=== PATIENT | female | born 1965 | race Caucasian/White ===

== ENCOUNTER → 2017-04-02 | Outpatient (CLI) | payer BC ==
--- NOTE | 2017-04-05 07:36 | MM ---
Reason for exam: screening (asymptomatic). Last mammogram was performed 3 years and 5 months ago. History: Benign excisional biopsy of the right breast, 2001. Took hormonal contraceptives for 9 years. Physical Findings: A clinical breast exam by your physician is recommended on an annual basis and results should be correlated with mammographic findings. MG Screening Mammo w CAD Bilateral CC and MLO view(s) were taken. Prior study comparison: November 14, 2013, bilateral digital screening mammo w/CAD. July 17, 2008, bilateral digital screening mammogram. There are scattered fibroglandular densities. No significant changes when compared with prior studies. ASSESSMENT: Benign, BI-RAD 2 RECOMMENDATION: Routine screening mammogram of both breasts in 1 year.
== END | disposition home or self-care (01) ==
LOC: RADMAMWWP 14:37
PROVIDERS: ATTEND Family Medicine
DX: Z12.31 Encounter for screening mammogram for malignant neoplasm of breast (principal)

== ENCOUNTER → 2019-12-27 | Outpatient (CLI) | payer OTHER ==
[2019-12-27 12:54] LABS: Basophils % (A) 0 %; Eosinophils # (A) 0.2 k/uL (0-0.7); Eosinophils % (A) 2 %; HCT 43.3 % (34.0-46.0); HGB 14.4 gm/dL (11.4-16.0); Lymphocytes # (A) 3.3 k/uL (1.0-4.8); Lymphocytes % (A) 38 %; MCH 30.5 pg (25.0-35.0); MCHC 33.2 g/dL (31.0-37.0); MCV 91.9 fL (80.0-100.0); Mean Platelet Volume 7.3; Monocytes # (A) 0.4 k/uL (0-1.0); Monocytes % (A) 4 %; Neutrophils # (A) 4.6 k/uL (1.3-7.7); Neutrophils % (A) 53 %; Platelet Count 302 k/uL (150-450); RBC 4.71 m/uL (3.80-5.40); RDW 13.3 % (11.5-15.5); WBC 8.7 k/uL (3.8-10.6)
[2019-12-27 12:56] LABS: Potassium 5.4 mmol/L (3.5-5.1)
== END | disposition home or self-care (01) ==
LOC: LABPAT 11:19
PROVIDERS: ATTEND Orthopaedic Surgery
DX: Z01.818 Encounter for other preprocedural examination (principal); M23.92 Unspecified internal derangement of left knee; S83.512D Sprain of anterior cruciate ligament of left knee, subsequent encounter
CPT/HCPCS: 36415; 80051; 85025; 93005

== ENCOUNTER → 2020-01-09 | Outpatient (CLI) | payer OTHER ==
--- NOTE | 2020-01-11 09:23 | MM ---
Reason for exam: screening (asymptomatic). Last mammogram was performed 2 years and 9 months ago. History: Benign excisional biopsy of the right breast, 2001. Took hormonal contraceptives for 9 years. Physical Findings: A clinical breast exam by your physician is recommended on an annual basis and results should be correlated with mammographic findings. MG 3D Screening Mammo W/Cad Bilateral CC and MLO view(s) were taken. Prior study comparison: April 02, 2017, bilateral MG screening mammo w CAD. November 14, 2013, bilateral digital screening mammo w/CAD. The breast tissue is heterogeneously dense. This may lower the sensitivity of mammography. There is chronic nodularity in the left breast anterior upper outer quadrant. No significant changes when compared with prior studies. ASSESSMENT: Benign, BI-RAD 2 RECOMMENDATION: Routine screening mammogram of both breasts in 1 year.
== END ==
LOC: RADMAMWWP 15:47
PROVIDERS: ATTEND Family Medicine
DX: Z12.31 Encounter for screening mammogram for malignant neoplasm of breast (principal)
CPT/HCPCS: 77063; 77067

== ENCOUNTER 2020-01-11 07:29 | Day surgery (SDC) | payer OTHER ==
[2020-01-09 12:46] VITALS: BMI 38.2
--- NOTE | 2020-01-10 13:53 | HP ---
HISTORY AND PHYSICAL Surgery 01/11/2020. Anai Ovalle 54-year-old patient seen with progressive left knee pain, instability consistent with meniscal tear and anterior cruciate ligament tear. We discussed options. She elected to proceed with arthroscopy to include allograft ACL reconstruction. Consent regarding the procedure was obtained. PAST MEDICAL HISTORY: Hypertension. PAST SURGICAL HISTORY: Carpal tunnel release. Colonoscopy. MEDICATIONS: Atenolol. ALLERGIES: None. SOCIAL HISTORY: She denies tobacco use. PHYSICAL EXAMINATION: Evaluation of the left knee range of motion 0-130. Mild effusion. Tenderness along the medial and lateral joint lines. Positive medial Liliya's. Plus one/two Marjan. Pivot shift equivocal. Collateral ligaments are stable. Distal neurovascular exam intact. Left knee radiographs revealed moderate medial compartment osteoarthritis. An MRI of the left knee revealed medial meniscal tear, anterior cruciate ligament tear and large joint effusion. IMPRESSION: 1. Internal derangement, left knee with medial meniscal tear and anterior cruciate ligament tear. 2. Left knee osteoarthritis. 3. Hypertension. PLAN: Left knee arthroscopy with partial meniscectomy, allograft ACL reconstruction and debridement. MMODL / IJN: [id number] /
[~2020-01-11 07:29] MED LIST: LACTATED RINGERS 1,000 ML IV SCH
[2020-01-11] MEDS ORDERED: ONDANSETRON 4 MG/2 ML VIAL ONE (08:08)
[2020-01-11] MEDS ORDERED: ONDANSETRON 4 MG/2 ML VIAL IVP ONE (08:11)
[2020-01-11] MEDS ORDERED: DEXAMETHASONE SOD PHOSPHATE 10 MG/ML 1 ML VIAL IV ONE (08:11)
[2020-01-11] MEDS ORDERED: MIDAZOLAM 2 MG/2 ML VIAL IVP ONE (08:17)
--- NOTE | 2020-01-11 08:51 | P.ANPRN ---
Procedure Note - Anesthesia - Nerve Block Performed Left Adductor Canal Single Time Out Performed: Yes Date of Procedure: 01/11/20 Procedure Start Time: 08:37 Procedure Stop Time: 08:45 Location of Patient: PreOp Indication: Acute Post-Operative Pain, Requested by Surgeon Sedation Type: Sedate with meaningful contact maintained Preparation: Sterile Prep, Sterile Dressing Position: Supine Catheter: None Needle Types: Pajunk Needle Gauge: 20 Ultrasound used to visualize needle placement: Yes Ultrasound used to observe medication spread: Yes Injectate: 0.5% Ropivacaine (see comment for volume) (30 ml + decadron 4 mg) Blood Aspirated: No Pain Paresthesia on Injection Noted: No Resistance on Injection: Normal Image Stored and Saved: Yes Events: Uneventful and Well Tolerated
[2020-01-11] MEDS ORDERED: ROPIVACAINE 5 MG/ML 30 ML VIAL ONE (09:17)
[2020-01-11] MEDS ORDERED: MIDAZOLAM 2 MG/2 ML VIAL ONE (09:17)
[2020-01-11] MEDS ORDERED: DEXAMETHASONE SOD PHOSPHATE 4 MG/ML 1 ML VIAL ONE (09:17)
[2020-01-11] MEDS ORDERED: fentaNYL (PF) 50 MCG/ML 2 ML AMP ONE (09:17)
[2020-01-11] MEDS ORDERED: PROPOFOL 10 MG/ML 20 ML VIAL IV ONE (09:17)
[2020-01-11] MEDS ORDERED: SUCCINYLCHOLINE CHLORIDE 100 MG/5 ML SYR IV ONE (09:17)
[2020-01-11] MEDS ORDERED: KETOROLAC 30 MG/ML 1 ML VIAL ONE (09:17)
[2020-01-11] MEDS ORDERED: LACTATED RINGERS 1,000 ML IV ONE (10:58)
[2020-01-11] MEDS ORDERED: BUPIVACAIN-EPI 0.25%-1:200,000 30 ML VIAL INTRAARTIC ONE (11:31)
--- NOTE | 2020-01-11 12:01 | P.OP ---
Date of Procedure: 01/11/20 Preoperative Diagnosis: Internal derangement left knee Postoperative Diagnosis: 1. ACL tear left knee 2. Medial meniscal tear left knee 3. Grade 2 chondromalacia medial femoral condyle left knee 4. Reactive synovitis medial, lateral and suprapatellar compartments left knee Procedure(s) Performed: 1. Arthroscopic allograft ACL reconstruction left knee 2. Arthroscopic partial medial meniscectomy left knee 3. Arthroscopic chondroplasty medial femoral condyle left knee 4. Arthroscopic partial synovectomy medial, lateral and suprapatellar compartments left knee Implants: 2Arthrex Endobutton Anesthesia: GETA, local Surgeon: José Manuel Garcia Director Meetings #1: Anibal Rueda Estimated Blood Loss (ml): 20 Pathology: none sent Condition: stable Disposition: PACU Indications for Procedure: 54-year-old patient seen with left knee pain and instability consistent with anterior cruciate ligament tear meniscal tear. We discussed proceeding with arthroscopy to include allograft ACL reconstruction, patient was agreeable and consent was obtained. Operative Findings: See description of procedure Description of Procedure: Patient was taken to the operative suite. Patient underwent a general anesthetic by the department of anesthesia. Patient was given preoperative antibiotics. The left lower extremity was placed in a well-padded arthroscopic leg patino. The left leg was prepped and draped in the normal sterile orthopedic fashion. A lateral parapatellar and suprapatellar incision was made. Trochars were inserted. Arthroscopy was initiated. Suprapatellar pouch revealed diffuse thick reactive synovitis. The patellofemoral joint appeared articulate congruently. There was grade 2 chondromalacia of the patella with no osteochondral tears present. The scope was guided into the medial gutter. No loose bodies or plica were identified. The scope was then guided into the medial compartment. A medial parapatellar incision was made. Trocar inserted followed by probe. There was a complex tear posterior horn medial meniscus. There were grade 3 chondral malacia changes of medial femoral condyle with some osteochondral flap tears present. There was thick reactive synovitis anteriorly. Scope and probe were then guided into the intercondylar notch noting a complete tear of the anterior cruciate ligament and an intact posterior cruciate ligament. At this point Power FARRIS opened the allograft and began preparing for implantation. I guided the scope back into the medial compartment. I performed a partial medial meniscectomy. I performed a partial synovectomy. I performed a chondroplasty medial femoral condyle. The residual meniscus was stable. The residual osteochondral surface was stable. There was good decompression of the synovitis. The scope and probe were then guided into lateral compartment. The lateral meniscus was stable. There was minimal mild grade 1 chondromalacia of the lateral compartment. There was thick reactive synovitis anteriorly. I performed a partial synovectomy. There was good decompression of synovitis. I now guided the scope back into the intercondylar notch. I debrided the remnants of the anterior cruciate ligament. I performed a notchplasty. With the assistance of Power FARRIS I created femoral and tibial tunnels. We now brought the graft into the operative field. We now passed the femoral tunnel making sure the Endobutton was engaged and we appropriately shoulder into the tunnel. We now shuttled the tibial side of our graft into our tibial tunnel. We then placed appropriate tension to the graft and then secured the tibial side with an Endobutton. Residual suture limbs were clipped. We tension the femoral side. A good positioning of the graft with excellent fixation and good intraoperative stability. The scope was in guided back into the suprapatellar compartment. I introduced a motorized shaver into the super compartment. I debrided some debris/meniscal tissue and performed a partial synovectomy decompressing reactive synovitis. There was good decompression of synovitis. I took one more look on the entire knee no was no residual debris. Instruments were now removed from the joint. The joint was infiltrated with .25% Marcaine. All portal sites are many medial incision were repaired with nylon suture. Sterile dressings were applied. The patient was placed into a LULY hose. The extremity was placed into a knee immobilizer. No tourniquet was utilized. The patient was awakened, transferred to a bed and taken to recovery stable satisfactory condition. Power FARRIS assisted with the procedure.
[2020-01-11 12:03] VITALS: RESP 16; TEMP 96.8
[2020-01-11] MEDS ORDERED: HYDROcodone/APAP 7.5-325MG 1 EACH TAB ONE (13:21)
[2020-01-11] MEDS ORDERED: HYDROcodone/APAP 7.5-325MG 1 EACH TAB PO ONE (13:23)
[2020-01-11 13:25] VITALS: BP 128/78; PULSE 71
== END 2020-01-11 14:16 | disposition home or self-care (01) ==
LOC: OR 07:29
PROVIDERS: ATTEND Orthopaedic Surgery
DX: M23.222 Derangement of posterior horn of medial meniscus due to old tear or injury, left knee (principal); S83.512A Sprain of anterior cruciate ligament of left knee, initial encounter; M94.262 Chondromalacia, left knee; M65.862 Other synovitis and tenosynovitis, left lower leg; I10 Essential (primary) hypertension; M17.12 Unilateral primary osteoarthritis, left knee; Z98.890 Other specified postprocedural states; Z86.69 Personal history of other diseases of the nervous system and sense organs; Z79.899 Other long term (current) drug therapy; X58.XXXA Exposure to other specified factors, initial encounter
CPT/HCPCS: 84132; 29888; 29881; C1713; C1762; J2250; J1100 ×2; J0690; J2405; J3010; J1885; J2795; J0330; J2704

== ENCOUNTER → 2021-01-13 | Outpatient (CLI) | payer OTHER ==
--- NOTE | 2021-01-15 11:49 | MM ---
Reason for exam: screening (asymptomatic). Last mammogram was performed 1 year ago. History: Benign excisional biopsy of the right breast, 2001. Took hormonal contraceptives for 9 years. Physical Findings: A clinical breast exam by your physician is recommended on an annual basis and results should be correlated with mammographic findings. MG 3D Screening Mammo W/Cad Bilateral CC and MLO view(s) were taken. Prior study comparison: January 09, 2020, bilateral MG 3d screening mammo w/cad. April 02, 2017, bilateral MG screening mammo w CAD. The breast tissue is heterogeneously dense. This may lower the sensitivity of mammography. ASSESSMENT: Benign, BI-RAD 2 RECOMMENDATION: Routine screening mammogram of both breasts in 1 year.
== END | disposition home or self-care (01) ==
LOC: RADMAMWWP 15:50
PROVIDERS: ATTEND Family Medicine
DX: Z12.31 Encounter for screening mammogram for malignant neoplasm of breast (principal)
CPT/HCPCS: 77063; 77067

== ENCOUNTER → 2021-12-26 | Outpatient (CLI) | payer OTHER ==
--- NOTE | 2021-12-29 09:08 | MM ---
Reason for Exam: Screening (asymptomatic). Last screening mammogram was performed 12 month(s) ago. Patient History: Menarche at age 13. First Full-Term at age 25. Hormonal Contraceptives for 9 years until age 27. 2001, Benign Excisional Biopsy on the right side. Risk Values: Jeanie 5 year model risk: 1.3%. NCI Lifetime model risk: 9.6%. Prior Study Comparison: 04/02/2017 Bilateral Screening Mammogram, [facility]. 01/09/2020 Bilateral Screening Mammogram, [facility]. 01/13/2021 Bilateral Screening Mammogram, [facility]. Tissue Density: The breast tissue is heterogeneously dense. This may lower the sensitivity of mammography. Findings: Analyzed By CAD. There is no suspicious group of microcalcifications or new suspicious mass in either breast. Overall Assessment: Negative, BI-RAD 1 Management: Screening Mammogram of both breasts in 1 year. A clinical breast exam by your physician is recommended on an annual basis and results should be correlated with mammographic findings. Electronically signed and approved by: Tony Posada M.D. Radiologis
== END | disposition home or self-care (01) ==
LOC: RADMAMWWP 16:18
PROVIDERS: ATTEND Family Medicine
DX: Z12.31 Encounter for screening mammogram for malignant neoplasm of breast (principal)
CPT/HCPCS: 77063; 77067

== ENCOUNTER → 2022-10-09 | Outpatient (CLI) | payer OTHER ==
--- NOTE | 2022-10-10 09:36 | XR ---
EXAMINATION TYPE: XR foot limited LT DATE OF EXAM: 10/09/2022 COMPARISON: None HISTORY: Pain TECHNIQUE: 2 view left foot FINDINGS: No acute fracture or dislocation is evident. Plantar calcaneal heel spur is present. Some m ild soft tissue swelling over the distal dorsal foot is present. The metatarsals appear intact. Alignment is preserved. Follow up exams can be performed 7-10 days fro m acute trauma for continued pain. IMPRESSION: 1. No acute osseous abnormality left foot. 2. Plantar calcaneal heel spur
== END | disposition home or self-care (01) ==
LOC: RADXRMAIN 16:07
PROVIDERS: ATTEND Family Medicine
DX: M79.672 Pain in left foot (principal); M77.32 Calcaneal spur, left foot

== ENCOUNTER → 2023-01-29 | Outpatient (CLI) | payer OTHER ==
--- NOTE | 2023-01-29 16:14 | BD ---
EXAMINATION TYPE: Axial Bone Density DATE OF EXAM: 01/29/2023 CLINICAL HISTORY: 57 years old Female. ICD-10 CODE: Z78.0 POST MENOPAUSAL WITHOUT HRT Nuclear Medicine Study in the last 2 weeks: Barium Study in the last week: : Height: Weight: FRAX RISK QUESTIONS: Alcohol (3 or more units per day): no Family History (Parent hip fracture): no Glucocorticoids (More than 3mos): no History of Fracture in Adulthood: no Secondary Osteoporosis: 1. Type 1 Diabetes: no 2. Hyperthyroidism: no 3. Menopause before 45: no 4. Malnutrition: no 5. Chronic liver disease: no Rheumatoid Arthritis: no Current Tobacco Use: no RISK FACTORS HISTORY OF: Hip Fracture (Right/Left): no Spine Fracture: no History of Wrist Fracture: yes When: age 9 Surgery to Spine/Hip(right/left)/Wrist (right/left): no Family History of Osteoporosis: no Active: somewhat Diet low in dairy products/other sources of calcium: yes Postmenopausal woman: yes Take estrogen and/or progesterone medications: no Lost more than 2 inches in height since high school: no Frequent falls: no Poor Health: no Hyperparathyroidism: no Adrenal Insufficiency: no MEDICATIONS: Prednisone or other steroids: no Thyroid Medications: no Osteoporosis Medications: no Additional Medications: BPMed, Additional History: EXAM MEASUREMENTS: Bone mineral densitometry was performed using the MetaCD[employer] System. Bone mineral density as measured about the Lumbar spine is: ----- L1-L4(G/cm2): 1.200 T Score Values are as follows: ----- L1: -0.1 ----- L2: 0.0 ----- L3: 0.1 ----- L4: 0.2 ----- L1-L4: 0.2 Z Score Values are as follows: ----- L1: -0.4 ----- L2: -0.3 ----- L3: -0.2 ----- L4: -0.1 ----- L1-L4: -0.1 Baseline Study Bone mineral density about the R hip (g/cm2): 1.074 Bone mineral density about the L hip (g/cm2): 1.125 T Score values are as follows: -----R Neck: -0.9 -----L Neck: -1.3 -----R Total: 0.5 -----L Total: 0.9 Z Score values are as follows: -----R Neck: -0.6 -----L Neck: -1.0 -----R Total: 0.4 -----L Total: 0.8 Baseline Study FRAX%s: The graph provided illustrates a 5.6 % chance for a major osteoporotic fx and a 0.3% chance f or the hips probability for fx in 10 years time. IMPRESSION: Osteopenia (T Score between -2.5 and -1). There is slightly increased risk of fracture and the patient may be considered for treatment. Re-Screen 2-5 years. NOTE: T-SCORE=SD OF THE YOUNG ADULT MEAN.
--- NOTE | 2023-02-01 08:08 | MM ---
Reason for Exam: Screening (asymptomatic). Last mammogram was performed 1 year(s) and 1 month(s) ago. Patient History: Menarche at age 13. First Full-Term at age 25. Postmenopausal. Hormonal Contraceptives for 9 years until age 27. 2001, Benign Excisional Biopsy on the right side. Risk Values: Jeanie 5 year model risk: 1.4%. NCI Lifetime model risk: 9.5%. Prior Study Comparison: 01/09/2020 Bilateral Screening Mammogram, [facility]. 01/13/2021 Bilateral Screening Mammogram, [facility]. 12/26/2021 Bilateral MG 3D screening mammo w/cad, [facility]. Tissue Density: The breast tissue is heterogeneously dense. This may lower the sensitivity of mammography. Findings: Analyzed By CAD. Nodular density upper outer left breast approximately 5 cm from the nipple. Additional views are recommended. No suspicious calcifications are seen within either breast. Overall Assessment: Incomplete: need additional imaging evaluation, BI-RAD 0 Management: Diagnostic Mammogram of the left breast. . Patient should continue monthly self-breast exams. A clinical breast exam by your physician is recommended on an annual basis. This exam should not preclude additional follow-up of suspicious palpable abnormalities. Note on Jeanie scores and lifetime risk: 1. A Jeanie score greater than 3% is considered moderate risk. If this is the case, consider specialist referral to assess eligibility for a risk reducing agent. 2. If overall lifetime risk for the development of breast cancer is 20% or higher, the patient may qualify for future screening with alternating mammogram and breast MRI. Electronically signed and approved by: Tony Posada M.D. Radiologis
== END | disposition home or self-care (01) ==
LOC: RADBDWWP 15:40
PROVIDERS: ATTEND Family Medicine
DX: Z12.31 Encounter for screening mammogram for malignant neoplasm of breast (principal); M85.89 Other specified disorders of bone density and structure, multiple sites; Z78.0 Asymptomatic menopausal state
CPT/HCPCS: 77063; 77067; 77080

== ENCOUNTER → 2023-02-10 | Outpatient (CLI) | payer OTHER ==
--- NOTE | 2023-02-11 07:11 | USB ---
Reason for Exam: Additional evaluation requested from abnormal screening. Patient History: Menarche at age 13. First Full-Term at age 25. Postmenopausal. Hormonal Contraceptives for 9 years until age 27. 2001, Benign Excisional Biopsy on the right side. Risk Values: Jeanie 5 year model risk: 1.4%. NCI Lifetime model risk: 9.3%. Prior Study Comparison: 01/13/2021 Bilateral Screening Mammogram, [facility]. 12/26/2021 Bilateral MG 3D screening mammo w/cad, [facility]. 01/29/2023 Bilateral MG 3D screening mammo w/cad, [facility]. Findings: Imaged: Ultrasound imaging of: Area of concern, retroareolar region and axilla. Anechoic cyst at 2:00 5 cm from the nipple correlating with area seen on mammogram. This is seen dating back to at least 2017 mammogram. No evidence for mass. Overall Assessment: Benign, BI-RAD 2 Management: Screening Mammogram of both breasts in 1 year. A clinical breast exam by your physician is recommended on an annual basis and results should be correlated with mammographic findings. This exam should not preclude additional follow-up of suspicious palpable abnormalities. Results were given to the patient verbally at the time of exam. Electronically signed and approved by: Rio Hernandez DO
== END | disposition home or self-care (01) ==
LOC: RADMAMWWP 14:54
PROVIDERS: ATTEND Family Medicine
DX: R92.8 Other abnormal and inconclusive findings on diagnostic imaging of breast (principal); Z78.0 Asymptomatic menopausal state

== ENCOUNTER → 2024-10-12 | Outpatient (CLI) | payer OTHER ==
--- NOTE | 2024-10-13 07:45 | MM ---
Reason for Exam: Screening (asymptomatic). Last mammogram was performed 1 year(s) and 8 month(s) ago. Patient History: Menarche at age 13. First Full-Term at age 25. Postmenopausal. Hormonal Contraceptives for 9 years until age 27. 2001, Benign Excisional Biopsy on the right side. Risk Values: Jeanie 5 year model risk: 1.5%. NCI Lifetime model risk: 9.1%. Prior Study Comparison: 01/13/2021 Bilateral Screening Mammogram, [facility]. 12/26/2021 Bilateral MG 3D screening mammo w/cad, [facility]. 01/29/2023 Bilateral MG 3D screening mammo w/cad, [facility]. Tissue Density: The breasts are heterogeneously dense, which may obscure small masses. Findings: Analyzed By CAD. There is no suspicious group of microcalcifications or new suspicious mass in either breast. Stable areas of chronic nodularity. Overall Assessment: Benign, BI-RAD 2 Management: Screening Mammogram of both breasts in 1 year. . Patient should continue monthly self-breast exams. A clinical breast exam by your physician is recommended on an annual basis. This exam should not preclude additional follow-up of suspicious palpable abnormalities. Note on Jeanie scores and lifetime risk: 1. A Jeanie score greater than 3% is considered moderate risk. If this is the case, consider specialist referral to assess eligibility for a risk reducing agent. 2. If overall lifetime risk for the development of breast cancer is 20% or higher, the patient may qualify for future screening with alternating mammogram and breast MRI. [facility], , 10/13/2024 7:42 AM. Electronically signed and approved by: Chidi Sotelo M.D. Radiologis
== END | disposition home or self-care (01) ==
LOC: RADMAMWWP 16:17
PROVIDERS: ATTEND Family Medicine
DX: Z12.31 Encounter for screening mammogram for malignant neoplasm of breast (principal); R92.333 Mammographic heterogeneous density, bilateral breasts; Z78.0 Asymptomatic menopausal state; Z92.0 Personal history of contraception
CPT/HCPCS: 77063; 77067